=== PATIENT | male | born 1995 | race Caucasian/White ===

== ENCOUNTER 2021-10-20 09:08 | Emergency (ER) | payer OTHER ==
[~2021-10-20] VITALS: Ht 177.8 cm; Wt 121.1 kg
[2021-10-20] MEDS ORDERED: IBUP-1955 PO (09:49)
[2021-10-20] MEDS ORDERED: AMOX-430 PO (09:49)
[2021-10-20] MEDS ORDERED: NEOM7.5D8 EACHEYE (09:49)
--- NOTE | 2021-10-20 09:55 | NUR ---
Gave pt RX and d/c instructions, pt verbalized understanding.
== END 2021-10-20 10:14 | disposition home or self-care (01) ==
LOC: ER 09:08
DX: H66.92 Otitis media, unspecified, left ear (principal); R03.0 Elevated blood-pressure reading, without diagnosis of hypertension
CPT/HCPCS: A4663